=== PATIENT | female | born 1940 | race Two or more races ===

== ENCOUNTER 2019-03-17 11:43 | Inpatient (IN) | payer MEDICARE, OTHER ==
[~2019-03-17] VITALS: Ht 157.5 cm; Wt 53.5 kg
[~2019-03-17 11:43] MED LIST: ANTIVERT/2525 MG PO; ATI1 PO; BAYER ASPIRIN R81 MG PO; BUS5 PO; BUSPIRONE HCL5 MG PO; CORTISPORIN AS; DEBROX15 ML OT; FENOFIBRATE54 M1 PO; ISO10 PO; L40 PO; LIPI10 PO; MECLIZINE25 M3 PO; SIMVASTATIN10 M1 PO; SIMVASTATIN20 M1 PO; SOD1 PO; ZESTRIL20 MG PO
--- NOTE | 2019-03-17 11:45 | NUR ---
IV LINE CASINO CAGE CASHIER HAS INFILTRATED. TOOK OUT IV. WILL START ANOTHER IV
--- NOTE | 2019-03-17 11:51 | NUR ---
PATIENT [facility] AFTER HAVING ALOC. WAS BROUGHT TO BEDSIDE AND WAS AT FIRST ANSWERING QUESTIONS SLOWLY. AFTER A FEW MINUTES, PATIENT WAS ABLE TO COMMUNICATE AND ANSWER QUESTIONS APPROPRIATELY. AAOX4, GCS 15, PERRLA, PATIENT ACTING APPROPRIATELY. BREATHING E/U, BILATERAL CHEST RISE. DR. MARK PERFORMED MSE.
--- NOTE | 2019-03-17 12:21 | NUR ---
XRAY AT BEDSIDE.
--- NOTE | 2019-03-17 12:22 | NUR ---
PT TAKEN TO CT VIA [facility] MATOS.
[2019-03-17 12:24] LABS: BASOPHIL % 0.2 % (0-2); PLATELET COUNT 269 x10^3mcL (130-400)
[2019-03-17 12:39] LABS: CALCIUM 8.5 mg/dL (8.5-10.1); CARBON DIOXIDE 24.9 mmol/L (21-32); CHLORIDE SERUM 100 mmol/L (98-107); CREATININE SERUM 1.2 mg/dL (0.6-1.0); GLUCOSE SERUM 89 mg/dL (74-106); POTASSIUM SERUM 3.7 mmol/L (3.5-5.1); SODIUM SERUM 136 mmol/L (136-145)
[2019-03-17 12:44] LABS: ALBUMIN 3.4 g/dL (3.4-5.0); ALKALINE PHOSPHATASE 67 U/L (46-116); ALT/SGPT 15 U/L (14-59); AST/SGOT 23 U/L (15-37); BILIRUBIN TOTAL 0.49 mg/dL (0.20-1.00); TOTAL PROTEIN, SERUM 6.8 g/dL (6.4-8.2)
--- NOTE | 2019-03-17 12:51 | NUR ---
PT RESTING AT BEDSIDE IN NAD. BREATHING E/U BILATERAL CHEST RISE. WAS ABLE TO URINATE VIA BEDSIDE COMMODE.
[2019-03-17 12:58] LABS: microscopic required? YES; urine erythrocyte NEGATIVE (NEGATIVE)
--- NOTE | 2019-03-17 13:02 | NUR ---
FAMILY AT BEDSIDE
--- NOTE | 2019-03-17 13:36 | NUR ---
PATIENT RESTING AT BEDSIDE IN NAD
[2019-03-17] MEDS ORDERED: ASPIR LOW81 MG PO (15:15)
--- NOTE | 2019-03-17 15:19 | NUR ---
PATIENT RESTING AT BEDSIDE IN NAD. FAMILY AT BEDSIDE.
--- NOTE | 2019-03-17 15:45 | NUR ---
REPORT GIVEN TO GAURI CABRERA
--- NOTE | 2019-03-17 15:59 | NUR ---
RECEIVED PT FROM ED [facility]IA [employer], CAME IN DUE TO SYNCOPE. AAOX4, SLOW SPEECH. DENIES HEADACHE/DIZZINESS. ABLE TO FOLLOW COMMANDS. HAND TOOL GRINDER EQUAL. NO FACIAL DROOP. DENIES CHEST PAIN/PRESSURE, SR ON THE MONITOR. DENIES ABDOMINAL DISCOMFORT. VOIDS. W/ ERYTHEMA ON THE BREAST, ABDOMEN, MID-BACK AND BLE. GENERALIZED WEAKNESS. IV SITE PATENT AND INTACT. SIDE RAILS UPX2. CALL LIGHT ON REACH. ENDORSED TO PRIMARY NURSE MEDINA FOR CONTINUITY OF CARE
[2019-03-17 16:15] VITALS: BP 130/67
[2019-03-17 16:24] VITALS: Ht 157.5 cm; Wt 53.5 kg
--- NOTE | 2019-03-17 16:37 | NUR ---
PHYSICAL THERAPY NOTE UNABLE TO SEE PATIENT SECONDARY DIAGNOSTIC PROCEDURE. WILL ATTEMPT AGAIN NEXT VISIT. NURSING AWARE.
--- NOTE | 2019-03-17 18:26 | NUR ---
PT SITTING UP IN BED EATING DINNER. NO ACUTE DISTRESS. AAOX4. BREATHING EVEN AND UNLABORED ON RA. ECCHYMOSIS WITH ITCHINESS THROUGHOUT BODY, CREAM APPLIED ORDERED. IVF INFUSING, NO REDNESS OR SWELLING. HOB ELEVATED. BED IN LOW POSITION, CALL LIGHT WITHIN REACH. WILL ENDORSE TO ONCOMING SHIFT.
--- NOTE | 2019-03-17 19:25 | NUR ---
RECEIVED PT FROM PREVIOUS SHIFT NURSE. PT AOX4, DENIES PICHARDO/DIZZINESS. ON TELE #2, NSR, HR 69. DENIES CP/PRESSURE. DENIES SOB/DIFFICULTY BREATHING, ON RA. GEN WEAKNESS. AMBULATORY WITH ASSIST. IV TO RAC, INTACT AND PATENT. BED IN LOWEST POSITION. CALL LIGHT WITHIN REACH. WILL CONTINUE TO MONITOR.
[2019-03-17 20:55] VITALS: BP 125/62
--- NOTE | 2019-03-18 02:30 | NUR ---
PT RESTING IN BED. RR EVEN AND UNLABORED. IN NO ACUTE DISTRESS. CALL LIGHT WITHIN REACH. BED IN LOWEST POSITION. WILL CONTINUE TO MONITOR.
[2019-03-18 06:17] VITALS: BP 124/62
[2019-03-18 06:23] LABS: BASOPHIL % 0.4 % (0-2); PLATELET COUNT 268 x10^3mcL (130-400); RED CELL DISTRIBUTION WIDTH 13.9 % (11.5-14.5)
[2019-03-18 06:48] LABS: CALCIUM 8.6 mg/dL (8.5-10.1); CARBON DIOXIDE 22.7 mmol/L (21-32); CHLORIDE SERUM 102 mmol/L (98-107); GLUCOSE SERUM 78 mg/dL (74-106); POTASSIUM SERUM 3.7 mmol/L (3.5-5.1); SODIUM SERUM 134 mmol/L (136-145)
--- NOTE | 2019-03-18 07:27 | NUR ---
RECEIVED PT IN NO ACUTE DISTRESS. SLEEPING BUT EASILY AROUSABLE. RESP EVEN AND UNLABORED ON RA. NO PAIN NOTED. IVF INFUSING, NO REDNESS OR SWELLING TO IV SITE. BED IN LOW POSITION, CALL LIGHT WITHIN REACH. WILL CONTINUE TO MONITOR.
[2019-03-18 08:10] VITALS: BP 128/69
[2019-03-18 11:57] VITALS: BP 150/71
--- NOTE | 2019-03-18 12:40 | NUR ---
PT SITTING UP IN BED EATING LUNCH. NO ACUTE DISTRESS. AAOX4. RESP EVEN AND UNLABORED ON RA. ERYTHEMA THROUGHOUT BODY WITH C/O MILD ITCHING. IVF INFUSING, NO REDNESS OR SWELLING. HOB ELEVATED. CALL LIGHT WITHIN REACH. WILL CONTINUE TO MONITOR.
--- NOTE | 2019-03-18 15:09 | NUR ---
PT C/O DIZZINESS AFTER STANDING UP TO USE BEDSIDE COMMODE. [employer]ENDO NATIONAL FACILITIES MANAGER MADE AWARE, RECEIVED TELEPHONE ORDER FOR MECLIZINE 12.5 MG PO Q8 NEEDED FOR DIZZINESS, ORDERS READ BACK.
[2019-03-18 16:50] VITALS: BP 148/84
--- NOTE | 2019-03-18 18:06 | NUR ---
PT HAD 300 ML EMESIS. GIVEN HOT TEA REQUESTED. PT STATED SHE FELT BETTER AFTER VOMITTING. ALSO GIVEN SALTINE CRACKERS REQUESTED. WILL CONTINUE TO MONITOR.
--- NOTE | 2019-03-18 20:10 | NUR ---
PT CURRENTLY RESTING IN BED, NO ACUTE DISTRESS. A/O X4. TELE #2 SHOWING SINUS RHYTHM, DENIES CHEST PAIN. PULSES PALPABLE IN ALL EXTREMITIES, NO EDEMA NOTED. LUNG SOUNDS CTA BILATERALLY, DENIES SOB. BOWEL SOUNDS ACTIVE, LAST BM 03/18/19. VOIDING WELL. GENERALIZED WEAKNESS, AMBULATORY WITH ASSIST. RASH THROUGHOUT BODY, AD OPERATIONS INTERN, PT EDUCATED TO NOT SCRATCH. IV PATENT AND INTACT. BED IN LOWEST POSITION, SIDE RAILS UP X2, CALL LIGHT WITHIN REACH. WILL CONTINUE TO MONITOR.
[2019-03-18 20:49] VITALS: BP 145/72
--- NOTE | 2019-03-19 01:25 | NUR ---
PT CURRENTLY RESTING IN BED, NO ACUTE DISTRESS. C/O MILD ITCHINESS, APPLIED TOPICAL CREAM. BED IN LOWEST POSITION, SIDE RAILS UP X2, CALL LIGHT WITHIN REACH. WILL CONTINUE TO MONITOR.
--- NOTE | 2019-03-19 05:59 | NUR ---
PT SLEPT PERIODICALLY THROUGHOUT NIGHT, NO ACUTE DISTRESS. ALL NEEDS MET AND ATTENDED TO. NO SIGNIFICANT CHANGES. IV PATENT AND INTACT. BED IN LOWEST POSITION, SIDE RAILS UP X2, CALL LIGHT WITHIN REACH. WILL ENDORSE CARE TO ONCOMING NURSE.
[2019-03-19 06:08] VITALS: BP 150/72
[2019-03-19 06:54] LABS: CALCIUM 8.2 mg/dL (8.5-10.1); CARBON DIOXIDE 21.4 mmol/L (21-32); CHLORIDE SERUM 98 mmol/L (98-107); CREATININE SERUM 0.9 mg/dL (0.6-1.0); GLUCOSE SERUM 82 mg/dL (74-106); POTASSIUM SERUM 3.9 mmol/L (3.5-5.1); SODIUM SERUM 130 mmol/L (136-145)
[2019-03-19 07:02] LABS: BASOPHIL % 0.4 % (0-2); PLATELET COUNT 266 x10^3mcL (130-400)
--- NOTE | 2019-03-19 07:20 | NUR ---
RECEIVED PT IN NO ACUTE DISTRESS. SLEEPING BUT EASILY AROUSABLE. BREATHING EVEN AND UNLABORED ON RA. IVF INFUSING, NO REDNESS OR SWELLING. FALL PRECAUTIONS. BED IN LOW POSITION, CALL LIGHT WITHIN REACH. WILL CONTINUE TO MONITOR.
[2019-03-19 08:08] VITALS: BP 128/71
--- NOTE | 2019-03-19 08:13 | NUR ---
IV TO RAC LEAKING, IV DC'D WITH CATHETER INTACT. NEW IV 22G STARTED ON RIGHT HAND, FLUSHED WITH 10 ML NS. WILL CONTINUE TO MONITOR.
[2019-03-19 11:53] VITALS: BP 131/74
--- NOTE | 2019-03-19 12:08 | NUR ---
PT RESTING IN BED WITH EYES CLOSED. BREATHING EVEN AND UNLABORED ON RA. HOB ELEVATED. FALL PRECAUTIONS IN PLACE. IVF INFUSING, NO REDNESS OR SWELLING NOTED. CALL LIGHT WITHIN REACH. WILL CONTINUE TO MONITOR.
[2019-03-19 16:40] VITALS: BP 127/69
--- NOTE | 2019-03-19 18:49 | NUR ---
PT IN NO ACUTE DISTRESS. RESTING IN BED. AAOX4, C/O MILD DIZZINESS. FALL PRECAUTIONS IN PLACE. BREATHING EVEN AND UNLABORED ON RA. IVF INFUSING, NO REDNESS OR SWELLING NOTED. BED IN LOW POSITION, CALL LIGHT WITHIN REACH. WILL CONTINUE TO MONITOR.
--- NOTE | 2019-03-19 19:29 | NUR ---
PT CURRENTLY RESTING IN BED, NO ACUTE DISTRESS. A/O X4. C/O MILD DIZZINESS. TELE #2 SHOWING SINUS RHYTHM, DENIES CHEST PAIN. PULSES PALPABLE IN ALL EXTREMITIES, NO EDEMA NOTED. LUNG SOUNDS CTA BILATERALLY, DENIES SOB. BOWEL SOUNDS ACTIVE, LAST BM 03/19/19. VOIDING WELL. GENERALIZED WEAKNESS, AMBULATORY WITH ASSIST. RASH THROUGHOUT BODY, PELON. IV PATENT AND INTACT. BED IN LOWEST POSITION, SIDE RAILS UP X2, CALL LIGHT WITHIN REACH. WILL CONTINUE TO MONITOR.
[2019-03-19 21:27] VITALS: BP 148/80
--- NOTE | 2019-03-20 00:18 | NUR ---
PT CURRENTLY SLEEPING IN BED, NO ACUTE DISTRESS. WILL CONTINUE TO MONITOR.
[2019-03-20 06:15] VITALS: BP 150/78
--- NOTE | 2019-03-20 07:15 | NUR ---
RECEIVED BEDSIDE REPORTE, PATIENT SITTING UP ON BSC, ALERT/ORIENTEDX4. ABLE TO MAKE NEEDS KNOWN AND FOLLOW COMMANDS. DENIES HEADACHE, CP OR FEELING SOB. LUNGS CTA, BREATHING E/U. TELE 2 READING SR 63. PERIPHERAL PULSES PALPABLE, NO EDEMA. DENIES N/V. VOIDS FREELY TO BSC, DENIES DISCOMFORT. AMB SLOWLY WITH MINIMAL ASSISTANCE, FALL PREC MAINATAINED. SCATTERED RASH/SCRATCH COCHRAN TO GENERALIZED BODY, APPLYING KENALOG CREAM. COMMUNICATIONS PROFESSIONAL. IV ACCESS TO RT HANDS, NS AT 50ML/HR, NO REDNESS/SWELLING. CALL LIGHT WITHIN REACH AND DEMONSTRATES UNDERSTANDING ON HOW TO USE. PATIENT ASKING IF SHE WILL BE GOING HOME TODAY, INFORMED HER DOCTORS WILL UPDATE HER THIS MORNING, VERBALIED UNDERSTANDING.
[2019-03-20 08:11] VITALS: BP 145/75
[2019-03-20] MEDS ORDERED: LEVAQUIN750 MG PO (09:00)
[2019-03-20 09:48] VITALS: BP 145/75
--- NOTE | 2019-03-20 11:15 | NUR ---
DISCHARGE INSTRUCTIONS AND PRESCRIPTION GIVEN, PATIENT AND DAUGHTER VERBALIZED UNDERSTANDING. IV DC'D CATH INTACT. TELE RETURNED TO TECH STATION. ALL QUESTIONS/CONCERNS ADDRESSED, PATIENT LEAVING UNIT VIA WHEELCHAIR ACCOMPANIED BY MACHINE TRY OUT SETTER.
== END 2019-03-20 11:14 | disposition home or self-care (01) | DRG 690 ==
LOC: ED 11:43 → MU 15:10 → DU 15:10 → MU 15:59 → DU 16:05
PROVIDERS: Student in an Organized Health Care Education/Training Program; ADMIT Internal Medicine
DX: N39.0 Urinary tract infection, site not specified (principal); E86.0 Dehydration; R55 Syncope and collapse; L25.8 Unspecified contact dermatitis due to other agents; E78.00 Pure hypercholesterolemia, unspecified; Z79.82 Long term (current) use of aspirin; Z68.21 Body mass index [BMI] 21.0-21.9, adult
CPT/HCPCS: 97116-GP; G0378; J0696; J3490; J7030; J8597; Q0092

== ENCOUNTER 2019-03-22 10:02 | Inpatient (IN) | payer MEDICARE, OTHER ==
[~2019-03-22] VITALS: Ht 157.5 cm; Wt 54.1 kg
[~2019-03-22 10:02] MED LIST changes: +ASPIR LOW81 MG PO; +LEVAQUIN750 MG PO
[2019-03-22 10:04] VITALS: Ht 157.5 cm; Wt 54.1 kg
--- NOTE | 2019-03-22 10:07 | NUR ---
PATIENT IS BROUGHT IN BY 2 GRANDDAUGHTERS. KAYLEIGH STATES THAT THE PATIENT HAS BEEN REFUSING TO EAT FOR THE PAST FEW DAYS AND THAT THEY PATIENT SEEMS NOT HERSELF. THE PATIENT HAS ALSO HAD TROUBLE WALKING AND NOT BEEN ABLE TO WALK UNLESS SHE IS PROVIDED WITH ASSISTANCE. ALSO STATED THAT THE PATIENT VOMITTED YESTERDAY. NO SIGNS OF FEVER.
[2019-03-22 10:43] LABS: BASOPHIL % 0.3 % (0-2); PLATELET COUNT 302 x10^3mcL (130-400); RED CELL DISTRIBUTION WIDTH 13.4 % (11.5-14.5)
--- NOTE | 2019-03-22 11:00 | NUR ---
STRAIGHT CATH DONE AT THIS TIME. URINALYSIS SENT TO LAB.
[2019-03-22 11:10] LABS: T3 TOTAL 0.73 ng/mL
[2019-03-22 11:11] LABS: FREE T4 0.89 ng/dL (0.76-1.46); T4(THYROXINE) 6.7 ug/dL (4.7-13.3)
[2019-03-22 11:13] LABS: CK-MB 2.8 ng/mL (0-3.6)
[2019-03-22 11:16] LABS: ALBUMIN 3.6 g/dL (3.4-5.0); ALKALINE PHOSPHATASE 70 U/L (46-116); ALT/SGPT 17 U/L (14-59); AST/SGOT 28 U/L (15-37); BILIRUBIN TOTAL 0.4 mg/dL (0.20-1.00); C REACTIVE PROTEIN 0.7 mg/dL (<=0.9); CALCIUM 9.1 mg/dL (8.5-10.1); CARBON DIOXIDE 22.7 mmol/L (21-32); CHLORIDE SERUM 85 mmol/L (98-107); CREATININE SERUM 1.1 mg/dL (0.6-1.0); GLUCOSE SERUM 94 mg/dL (74-106); POTASSIUM SERUM 3.9 mmol/L (3.5-5.1); TOTAL PROTEIN, SERUM 7.1 g/dL (6.4-8.2)
[2019-03-22 11:29] LABS: ERYTHROCYTE SED RATE 19 mm/hr (0-30)
[2019-03-22 11:33] LABS: SODIUM SERUM 121 mmol/L (136-145)
[2019-03-22 12:00] LABS: microscopic required? YES; urine erythrocyte TRACE (NEGATIVE)
--- NOTE | 2019-03-22 12:16 | NUR ---
ASSISTED PATIENT TO BED BRAUN AT THIS TIME. PATIENT VOIDED CLEAR URINE, FAIR AMT. NO PROBLEMS NOTED. PATIENT CLEANSED, AND STABLE. WILL CONTINUE TO MONITOR.
--- NOTE | 2019-03-22 12:57 | NUR ---
REPORT GIVEN TO GAURI ARRIETA. AT THIS TIME. ALL QUESTIONS ANSWERED AT THIS TIME.
[2019-03-22 13:25] VITALS: BP 172/83
--- NOTE | 2019-03-22 13:25 | NUR ---
RECEIVED PT FROM [facility], REPORT GIVEN BY GAURI HERNANDEZ. PT IS AAX4. RESP EVEN AND UNLABORED. LUNG SOUNDS CTA. NO R/A. NO COUGH OR SOB NOTED. TELE [address] READING NSR WITH DEPRESSED ST. PT DENIES C/P OR PRESSURE. SKIN CDI. PERIPHERAL PULSES PALPABLE. NO EDEMA NOTED. IVF NS 125 ML/HR RUNNING TO RAC. SITE WNL. NO S/S OF INFECTION OR INFILTRATION NOTED. GRANDAUGHTERS AT BEDSIDE. CALL LIGHT WITHIN REACH. BED IN LOWEST POSITION. FALL PROTOCOL FOLLOWED.
--- NOTE | 2019-03-22 13:38 | NUR ---
RECEIVED FROM ER, TRANSPORTED VIA [facility]. AWAKE, ALERT. ABLE TO MAKE NEEDS KNOWN. GENERALIZED WEAKNESS. BREATHING EVEN AND UNLABORED ON ROOM, LUNG SOUNDS CLEAR. PLACED ON TELE 1, SINUS RHYTHM. SALINE LOCK TO RIGHT AC. ADMISSION HISTORY AND ASSESSMENT DONE. ENDORSED TO NURSE MILLER.
--- NOTE | 2019-03-22 13:50 | NUR ---
TIARRA BRYSON NP MET WITH PT. PT IS DEHYDRATED AND WILL NEED TO CONTINUE IV FLUIDS. PT EXPECTED STAY ONE TO TWO MIDNIGHTS. PT AGREED WITH POC.
--- NOTE | 2019-03-22 15:00 | NUR ---
ASSISTED PT ON TO BED BRAUN AND BACK OFF. PT IS HAVING FREQUENT URINATION BUT DENIES PAIN UPON URINATION. RESP EVEN AND UNLABORED. NO DISTRESS NOTED. CALL LIGHT WITHIN
[2019-03-22 16:24] VITALS: BP 152/79
--- NOTE | 2019-03-22 18:46 | NUR ---
PT IS AAOX4. RESP EVEN AND UNLABORED. NO DISTRESS NOTED. TELE [address] READING NSR WITH DEPRESSED T. IVF RUNNING TO [facility], SITE WNL. PT DENIES PAIN AND DISCOMFORT. CALL LIGHT WITHIN REACH. WILL ENDORSE ALL CARE TO NOC RN.
--- NOTE | 2019-03-22 19:50 | NUR ---
PT RECIEVED AAO REG RESP NO SOB V/S STABLE,HOB,PT ON TELE MONITOR AND IN NSR NO ECTOPY OR CHEST PAIN THIS TIME,IV INFUSING WELL WITH THE SITE PATENT AND INTACT,MADE COMFORTABLE IN BED,PT WITH GENERALISED WEAKNESS,KEPT CLEAN AND DRY TO TOUCH,CALL LIGHT EASY REACHED AND WILL CONTINUE TO MONITOR.
[2019-03-22 20:15] VITALS: BP 151/69
[2019-03-23 05:49] VITALS: BP 157/72
--- NOTE | 2019-03-23 06:37 | NUR ---
PT HAD A RESTING NIGHT KEPT CLEAN AND DRY TO TOUCH AND NO CHANGE AT THIS TIME,WILL CONTINUE TO MONITOR.
--- NOTE | 2019-03-23 07:30 | NUR ---
PT ENDORSE TO ME THIS MORNING LAYING IN BED RESTING. AA/OX4. BREATHING EVEN AND UNLABORED ON RA, NO ACUTE RESP DISTRESS OR SOB NOTED. TELE 2 NSR WITH DREPRESSED T-WAVE NOTED/ DENIES ANY CP OR PRESSURE. VOIDS FREELY/ BEDPAN. GEN WEAKNESS/IS ABLE TO REPPOSITION SELF IN BED. BLE SCRATCH/PELON. IV TO THE RAC INTACT AND PATENT, INFUSING AT 125ML/HR, NO REDNESS OR SWELLING NOTED. WILL CONTINUE TO MONITOR/ X2 SIDE RAILS UP.
[2019-03-23 08:13] VITALS: BP 153/77
--- NOTE | 2019-03-23 08:40 | NUR ---
PT C/O N/V AND PICHARDO 03/18, MEDICATED PER EMAR. FAMILY AT BEDSIDE. WILL CONTINUE TO MONITOR.
[2019-03-23 10:01] LABS: CALCIUM 7.8 mg/dL (8.5-10.1); CARBON DIOXIDE 21.2 mmol/L (21-32); CHLORIDE SERUM 91 mmol/L (98-107); CREATININE SERUM 0.9 mg/dL (0.6-1.0); GLUCOSE SERUM 83 mg/dL (74-106); POTASSIUM SERUM 3.6 mmol/L (3.5-5.1)
[2019-03-23 10:17] LABS: SODIUM SERUM 122 mmol/L (136-145)
--- NOTE | 2019-03-23 10:20 | NUR ---
LAB CALLED NA 122 PASQUALE MAYEN MADE AWARE.
[2019-03-23 12:06] VITALS: BP 144/66
--- NOTE | 2019-03-23 14:25 | NUR ---
PT TOLERATED 50% OF LUNCH. DENIES ANY N/V AT THIS TIME.
[2019-03-23 15:57] VITALS: BP 119/60
--- NOTE | 2019-03-23 17:30 | NUR ---
PT TOLERATED 60% OF DINNER. DENIES ANY N/V OR DISCOMFORT.
--- NOTE | 2019-03-23 18:41 | NUR ---
NO ACUTE CHANGES AT THIS TIME. NO ACUTE RESP DISTRESS OR SOB NOTED. DENIES ANY N/V AT THIS TIME. IV TO THE RAC INFUSING AT 150ML/HR, NO REDNESS OR SWELLING NOTED. WILL ENDORSE TO INCOMING RN.
--- NOTE | 2019-03-23 19:25 | NUR ---
CARE ASSUMED FROM OUTGOING RN. PT RESTING COMFORTABLY IN BED. FAMILY AT BEDSIDE. NO ACUTE DISTRESS NOTED. EVEN AND UNLABORED RESPIRATIONS ON RA. ON TELE# 2 READING SB 58. IV PATENT AND INTACT RUNNING FLUIDS PER EMAR. DINNER AT BEDSIDE, NOTED POOR APPETITE AT THE MOMENT. DENIES ANY PAIN AT THIS TIME. BED IN LOWEST POSITION. SIDE RAILS UPX2. CALL LIGHT WITHIN REACH. WILL CONTINUE TO MONITOR.
[2019-03-23 20:50] VITALS: BP 134/60
--- NOTE | 2019-03-24 00:19 | NUR ---
PT ASLEEP COMFORTABLY IN BED. NO ACUTE DISTRESS NOTED. CHEST RISE AND FALL OBSERVED. ON TELE# 1 READING SB 58. IV PATENT AND INTACT WITH FLUIDS RUNNING PER EMAR. BED IN LOWEST POSITION. SIDE RAILS UPX2. CALL LIGHT WITHIN REACH. WILL CONTINUE TO MONITOR.
[2019-03-24 05:36] VITALS: BP 128/63
[2019-03-24 06:13] LABS: BASOPHIL % 0.3 % (0-2); PLATELET COUNT 249 x10^3mcL (130-400); RED CELL DISTRIBUTION WIDTH 13.8 % (11.5-14.5)
[2019-03-24 06:20] LABS: CALCIUM 7.4 mg/dL (8.5-10.1); CARBON DIOXIDE 22.4 mmol/L (21-32); CHLORIDE SERUM 96 mmol/L (98-107); CREATININE SERUM 0.9 mg/dL (0.6-1.0); GLUCOSE SERUM 80 mg/dL (74-106); MAGNESIUM 1.9 mg/dL (1.8-2.4); POTASSIUM SERUM 3.7 mmol/L (3.5-5.1); SODIUM SERUM 127 mmol/L (136-145)
--- NOTE | 2019-03-24 06:49 | NUR ---
PT SLEPT COMFORTABLY IN INTERVALS THROUGHOUT THE SHIFTS. NO ACUTE CHANGES NOTED. NO C/O OF PAIN. ON TELE# 1 READING SR 64. IV PATENT AND INTACT RUNNING FLUIDS PER EMAR. ALL NEEDS TENDED TO AND MET. ALL SCHEDULED MEDICATIONS GIVEN. BED IN LOWEST POSITION. SIDE RAILS UPX2. CALL LIGHT WITHIN REACH. WILL ENDORSE TO ONCOMING SHIFT.
--- NOTE | 2019-03-24 07:40 | NUR ---
PATIENT RESTING IN BED, NO ACUTE DISTRESS NOTED. PATIENT IS A/OX4. DENIES HEADACHE/ DIZZINESS. DENIES N/V . PATIENT DENIES SOB, ON ROOM AIR. PATIENT IS INCONTINENT AT TIMES. GENERALIZED WEAKNESS NOTED, ABLE TO ASSIST WITH TURNING. NS IV INFUSING TO RAC AT 150ML/HR, IV SITE CDI & PATENT, NO S/S OF INFILTRATION. CALL LIGHT WITHIN REACH, BED IN LOW POSITION. WILL CONTINUE TO MONITOR.
[2019-03-24 09:25] VITALS: BP 145/62
--- NOTE | 2019-03-24 10:43 | NUR ---
PASQUALE MUSA BLOOD CULTURE CAME BACK NEGATIVE, NO GROWTH AFTER 48 HRS.
--- NOTE | 2019-03-24 11:15 | NUR ---
PHYSICAL THERAPY AT BEDSIDE.
--- NOTE | 2019-03-24 12:52 | NUR ---
Initial Nutrition Assessment: 218T/B LONNY [place] IA HR Dx: Severe hyponatremia, generalized weakness PMHx: HIGH CHOLESTEROL, UTI PSHx: No Surgical History Labs: NA 127L, CA 7.4L, HGB 10.8L Meds: Ambien, Colace, morphine, norco, zofran Diet: Regular PO Intake: (03/24) breakfast 80%, (03/23) breakfast 0% Ht: 157.48 cm (62") Wt: 54 kg (119#) BMI: 21.8 kg/m2 Bed scale: 59.6 kg IBW: 110# (50 kg) %IBW: 108 UBW: 55-60 kg Age: 79/F Food Allergies: NKFA Skin: scratches to BLE Jose G: 17 Edema: none GI: Last BM: 03/23 Trigger: appears underweight/malnourished, unintentional weight loss, poor PO >3d Per H&P, Pt is a 79-year-old patient brought in by family for generalized weakness. Patient was just discharged from the hospital 2 days ago. She was in the hospital for 4 days and discharged with diagnosis of near syncope generalized weakness and a UTI. RDN Visit (03/24): Patient was alert and oriented and said that she ate most of her breakfast this morning. Per progress note, (03/24) Patient states she feels better today. Sodium level today is 127. Physical therapy pending Problem with: N/V/D/C: no Problems with: Chewing/Swallowing: none Current appetite: fair Recent wt change: none %wt change: N/A Vitamin/Supplement use: MVI Special diet at home: regular Physical activity: walking, stretching Nutrition education given: PO was encouraged. Pt is still hyponatremia. Pt. is willing to consume ONS Ensure. Food-drug interactions: Colace- high fiber w/8450-7019 ml fluids Education given: no Estimated Nutritional Needs Based on actual body weight 59 kg Energy: 4516-2569 kcal/d (30-35 kcal/kg) Protein: 59-71 g/d (1.0-1.2 g/kg) - geriatric maintenance Fluid: 6975-4865 ml/d (1 ml/kcal) or per doctor Nutrition Diagnosis 1. Increased nutrient needs related to geriatric age as evidenced by estimated calorie and protein needs. Intervention 1. Recommend continuing regular diet w/ Ensure Enlive BID. Discussed recommendations with PASQUALE Estevez. Monitor/Evaluate Goal: PO intake at least 75% of estimated needs Monitor: PO intake, Labs, GI function F/U in 7 days as low risk 03/31
--- NOTE | 2019-03-24 12:52 | NUR ---
1. Recommend continuing regular diet w/ Ensure Enlive BID. Discussed recommendations with PASQUALE Estevez.
[2019-03-24 12:55] VITALS: BP 150/65
--- NOTE | 2019-03-24 13:20 | NUR ---
PATIENT SITING UP IN BED EATING, PATIENT TOLERATING MEAL. PATIENT DENIES PAIN. TELE MONITOR IN PLACE. CALL LIGHT WITHIN REACH, BED IN LOW POSITION, WILL CONTINUE TO MONITOR.
[2019-03-24 16:49] VITALS: BP 141/58
[2019-03-24 16:52] VITALS: BP 145/68
--- NOTE | 2019-03-24 19:00 | NUR ---
PATIENT RESTING IN BED, NO ACUTE CHANGES NOTED THROUGH OUT SHIFT, PATIENT IS STABLE. DENIES PAIN. TELE MONITOR IN PLACE. DENIES SOB, ON ROOM AIR. NS IV INFUSING TO RIGHT FA AT 150ML/HR, NO S/S OF INFILTRATION. CALL LIGHT WITHIN REACH, BED IN LOW POSITION, WILL ENDORSE REPORT TO NIGHT RN.
--- NOTE | 2019-03-24 19:35 | NUR ---
RECEIVED REPORT FROM DAY SHIFT RN. PT RESTING IN BED. AA&O X4. NO SOB ON ROOM AIR. BREATHING EVEN AND UNLABORED. NO C/O PAIN. NO DISTRESS NOTED. IV TO RAC, NS INFUSING. SAFETY MEASURES IN PLACE. BED IN LOWEST POSITION. SIDE RAILS UP X2. DEMONSTRATED HOW TO USE THE CALL LIGHT FOR ASSISTANCE. CALL LIGHT WITHIN EASY REACH.
[2019-03-24 20:55] VITALS: BP 155/70
--- NOTE | 2019-03-25 00:46 | NUR ---
AMBIEN GIVEN FOR INSOMNIA.
--- NOTE | 2019-03-25 02:15 | NUR ---
PT RESTING WITH EYES CLOSED. NO SOB ON ROOM AIR. NO FACIAL GRIMACING NOTED. SAFETY MEASURES IN PLACE. CALL LIGHT WITHIN REACH. WILL CONTINUE TO MONITOR.
--- NOTE | 2019-03-25 04:56 | NUR ---
PT SLEPT AT LONG INTERVALS THROUGHOUT SHIFT. NO SOB ON ROOM AIR. NO DISTRESS NOTED. IV TO LAC, NS INFUSING PER ORDER. SAFETY MEASURES MAINTAINED. ALL NEEDS ATTENDED TO. CALL LIGHT WITHIN REACH. WILL CONTINUE TO MONITOR AND ENDORSE CONTINUITY OF CARE TO DAY SHIFT RN.
[2019-03-25 05:12] VITALS: BP 139/65
[2019-03-25 06:55] LABS: BASOPHIL % 0.3 % (0-2); PLATELET COUNT 271 x10^3mcL (130-400); RED CELL DISTRIBUTION WIDTH 14.2 % (11.5-14.5)
[2019-03-25 07:31] LABS: CALCIUM 8.2 mg/dL (8.5-10.1); CARBON DIOXIDE 22.1 mmol/L (21-32); CHLORIDE SERUM 100 mmol/L (98-107); CREATININE SERUM 0.8 mg/dL (0.6-1.0); GLUCOSE SERUM 80 mg/dL (74-106); POTASSIUM SERUM 3.8 mmol/L (3.5-5.1); SODIUM SERUM 131 mmol/L (136-145)
--- NOTE | 2019-03-25 07:45 | NUR ---
RECEIVED PATIENT SLEEPING IN BED, AROUSABLE. PATIENT IS A/OX3, DENIES HEADACHE, TELE MONITOR IN PLACE, NSR. PATIENT DENIES PAIN. LUNG SOUNDS CTA, PATIENT ON ROOM AIR. PATIENT OCCASIONALLY INCONTINENT, PATIENT AWARE TO NOTIFY NURSE IF SOILED. GENERALIZED WEAKNESS NOTED, ABLE TO ASIST WITH TURNING AND REPOSITIONING SELF. NS IV INFUSING TO RAC AT 150ML/HR, IV SITE CDI & PATENT, NO S/S OF INFILTRATION. CALL LIGHT WITHIN REACH, BED IN LOW POSITION, WILL CONTINUE TO MONITOR FOR CHAGES.
[2019-03-25 09:15] VITALS: BP 154/69
--- NOTE | 2019-03-25 11:50 | NUR ---
PATIENT SITTING UP, CONVERSING WITH FAMILY. PATIENT DENIES PAIN.UPDATED FAMILY ON PATIENTS PLAN OF CARE. ALL QUESTIONS AND CONCERNS ADDRESSED. CALL LIGHT WITHIN REACH, BED IN LOW POSITION, WILL CONTINUE TO MONITOR.
[2019-03-25 12:23] VITALS: BP 134/69
--- NOTE | 2019-03-25 14:50 | NUR ---
PATIENT SLEEPING IN BED, NO ACUTE DISTRESS NOTED. CALL LIGHT WITHIN REACH, BED IN LOW POSITION, WILL CONTINUE TO MONITOR.
--- NOTE | 2019-03-25 15:23 | NUR ---
PHYSICAL THERAPY DAILY NOTES CO-SIGN All documentation done by the [employer] Program Coordinator for 03/25/19 has been reviewed. I agree with the documentation. Reviewed/Co-Signed by: Saima Rojas PT Documentation Done by:LISA KOVACS TAR LEVELER POC REVIEWED W/ TAR LEVELER
[2019-03-25 17:28] VITALS: BP 129/58
--- NOTE | 2019-03-25 17:30 | NUR ---
PATIENT HAD TEMP OF 100.3, COOLING MEASURES STARTED. ICE PACKS APPLIED, AC TURNED ON, HEAVY BLANKETS REMOVED. PATIENT UNDERSTANDS TO REPORT ANY CHILLS. PATIENT AGREES WITH POC, WILL CONTINUE TO MONITOR PATIENT. CALL LIGHT WITHIN REACH.
--- NOTE | 2019-03-25 18:40 | NUR ---
PATIENT RESTING IN BED, DENIES PAIN. NO ACUTE DISTRESS NOTED. TELE MONITOR IN PLACE. DENIES NAUSEA/VOMITTING. NS IV INFUSING TO RAC AT 150ML/HR, IV SITE CDI & PATENT, NO S/S OF INFILTRATION. ALL QUESTIONS & CONCERNS ADDRESSED. CALL LIGHT WITHIN REACH, BED IN LOW POSITION, WILL ENDORSE REPORT TO NIGHT NURSE.
--- NOTE | 2019-03-25 19:53 | NUR ---
PT RESTING IN BED. AA&O X4. NO SOB NOTED. BREATHING EVEN AND UNLABORED. NO C/O PAIN AT THIS TIME. NO DISTRESS NOTED. IV TO RAC, NS INFUSING. SAFETY MEASURES IN PLACE. BED IN LOWEST POSITION. SIDE RAILS UP X2. INSTRUCTED PT TO CALL FOR ASSISTANCE. CALL LIGHT WITHIN REACH.
[2019-03-25 21:48] VITALS: BP 131/67
[2019-03-26 05:34] VITALS: BP 133/64
--- NOTE | 2019-03-26 06:12 | NUR ---
PT RESTED IN LONG INTERVALS THROUGHOUT SHIFT. NO SOB NOTED. NO C/O PAIN. NO ACUTE CHANGES. SAFETY MEASURES MAINTAINED. ALL NEEDS ATTENDED TO. BED IN LOWEST POSITION. SIDE RAILS UP X2. CALL LIGHT WITHIN REACH. WILL ENDORSE CONTINUITY OF CARE TO ONCOMING RN.
[2019-03-26 06:42] LABS: CALCIUM 7.4 mg/dL (8.5-10.1); CARBON DIOXIDE 24.8 mmol/L (21-32); CHLORIDE SERUM 97 mmol/L (98-107); CREATININE SERUM 0.7 mg/dL (0.6-1.0); GLUCOSE SERUM 83 mg/dL (74-106); POTASSIUM SERUM 4.2 mmol/L (3.5-5.1); SODIUM SERUM 129 mmol/L (136-145)
[2019-03-26 07:06] LABS: BASOPHIL % 0.4 % (0-2); PLATELET COUNT 264 x10^3mcL (130-400); RED CELL DISTRIBUTION WIDTH 14.3 % (11.5-14.5)
--- NOTE | 2019-03-26 08:00 | NUR ---
RECEIVED ALDA FERGUSON ND ORIENTE DTIMES FOUR. PATIENT IS SITTING UP AND EATING AT THIS TIME. CONTINUED ON IV FLUIDS AND TELE ORDERED. PATIENT HAS BEEN NOTED WITH H AND H OF 10.3/31, CHLORIDE AT 97, AND THE CA AT 7.4. PATIENT HAS BEEN ON NORMAL SALINE AT 150 PER HOUR. PATIENT HAS NOTED TO HAVE CHEST XRAY THAT IS NEGATIVE ADN THE URINE IS WTIH A FEW BACTERIA BUT DENIES ANY BURNING WITH URINATION. PATIENT WTIH HISTORY OF HIGH CHOLESTEROL, UTI, SYNCOPE ADN POOR APPETITE. SHE HAS BEEN TALKATIVE AND ON THE CELL PHONE OFTEN. PATIEN THAS SOME SCRATCHES TO THE LEGS AND SCDS IN PLACE. SHE HAS OTHERWISE INTACT SKIN AND SHE HAS ACTIVE BOWEL SOUNDS AND CLEAR BREATH SOUNDS ARE NOTED. VITALS ATTHIS TIME AT 98.7, 61, 18, 133/64, 99%. NO COMPLAINTS OF PAIN AT THIS TIME.
[2019-03-26 08:56] VITALS: BP 151/72
--- NOTE | 2019-03-26 10:56 | NUR ---
REMOVED THE TELE PER ORDER. NO DISTRESS NOTED AT THIS TIME. SEEN BY THE JAVA ORACLE DEVELOPER AND NO PLAN FOR DISCHARGE YET TODAY.
[2019-03-26 12:33] VITALS: BP 159/74
--- NOTE | 2019-03-26 14:00 | NUR ---
CALLED THE GIS SCIENTIST THE PATIENT HAS ELVATED BP. SHE WANTS THE IV FLUIDS CONTINUE AND TO MONITOT THE PATIENT AND IF THE BP IS ABOVE 170 SYSTOLIC TO CALL HER AND SHE MAY ORDER HYDROLOZINE AT THAT TIME. PATIENT IS WITH VISITOR AT BEDSIDE AND DENIES PAIN OR DISTRESS AT THIS TIME. =
[2019-03-26 17:31] VITALS: BP 163/72
--- NOTE | 2019-03-26 19:40 | NUR ---
RECEIVED REPORT FROM DAY SHIFT RN. PT SITTING UP IN BED. AA&O X4. NO SOB NOTED ON ROOM AIR. NO C/O PAIN. NO DISTRESS NOTED. IV TO RAC, NS INFUSING. SAFETY MEASURES IN PLACE. BED IN LOWEST POSITION. SIDE RAILS UP X2. INSTRUCTED PT TO CALL FOR ASSISTANCE. CALL LIGHT WITHIN REACH.
[2019-03-26 19:49] VITALS: BP 142/51
[2019-03-26 20:54] VITALS: BP 132/75
[2019-03-27 05:24] VITALS: BP 157/72
--- NOTE | 2019-03-27 06:17 | NUR ---
PT RESTED IN LONG INTERVALS DURING SHIFT. NO C/O SOB ON ROOM AIR. NO C/O PAIN. NO ACUTE CHANGES TO REPORT. SAFETY MEASURES MAINTAINED. ALL NEEDS ATTENDED TO. CLEANED AND MADE PT COMFORTABLE. CALL LIGHT WITHIN REACH. WILL ENDORSE CARE TO DAY SHIFT RN.
[2019-03-27 06:18] LABS: BASOPHIL % 0.7 % (0-2); PLATELET COUNT 277 x10^3mcL (130-400); RED CELL DISTRIBUTION WIDTH 13.8 % (11.5-14.5)
[2019-03-27 06:32] LABS: CALCIUM 7.8 mg/dL (8.5-10.1); CARBON DIOXIDE 24.4 mmol/L (21-32); CHLORIDE SERUM 94 mmol/L (98-107); CREATININE SERUM 0.7 mg/dL (0.6-1.0); GLUCOSE SERUM 79 mg/dL (74-106); POTASSIUM SERUM 4.1 mmol/L (3.5-5.1); SODIUM SERUM 127 mmol/L (136-145)
--- NOTE | 2019-03-27 07:20 | NUR ---
RECEIVED PATIENT AWAKE/ALERT, DENIES ANY PAIN. NO DISTRESS NOTED, M/S PATIENT. IV TO RAC INTACT AND INFUSING WELL. NAILHEAD SETTER AT BEDSIDE PROVIDE GERRY CARE FOR INCONT OF STOOL. CALL LIGHT WITHIN CALL LIGHT.
[2019-03-27 09:02] VITALS: BP 149/68
--- NOTE | 2019-03-27 09:43 | NUR ---
PATIENT UP WITH PT USING WALKER WALKING IN HALLWAY WITH GRAND-DTR ACCOMPANIED. NO COMPLAIN.
[2019-03-27] MEDS ORDERED: PRI20 PO (12:38)
--- NOTE | 2019-03-27 12:38 | NUR ---
PATIENT SAT UP IN BED EATING HER LUNCH, NO COMPLAINS. NEEDS MET, CALL LIGHT WITHIN REACH.
[2019-03-27] MEDS ORDERED: SOD1 PO (12:48)
--- NOTE | 2019-03-27 15:05 | NUR ---
PATIENT SLEEPING AT THIS TIME. NO DISTRESS NOTED. CALL LIGHT WITHIN REACH.
[2019-03-27 17:29] VITALS: BP 133/61
--- NOTE | 2019-03-27 18:00 | NUR ---
PATIENT SAT UP IN BED NO C/O PAIN, NO DISTRESS NOTED, EATING HER DINNER STATED TOO MUCH FOODS. INSTRUCT PATIENT TO EAT MUCH TOLERATED. NEEDS MET. CONT TO MONITOR.
--- NOTE | 2019-03-27 19:40 | NUR ---
RECEIVED PT LAYING IN BED, NO ACUTE DISTRESS OBSERVED, DENIES PAIN OR DISCOMFORT. AA/OX4, ABLE TO MAKE NEEDS KNOWN, SPEECH SLOW AND APPROPRIATE. MD-SURG, NO TELE, NO CP. PULSES PRESENT AND EQUAL THROUGHOUT, NO EDEMA NOTED. BREATHING ON RA, EVEN AND UNLABORED, NO SOB OR DYSPNEA OBSERVED. ABD ROUND AND SOFT WITH ACTIVE BOWEL SOUNDS, DENIES N/V/D. FREELY VOIDS URINE WITH PERIODS OF INCONTINENCE. GENERALIZED WEAKNESS, AMBULATORY WITH ASSIST, ABLE TO TURN AND REPOSITION SELF IN BED. PENDING SNF PLACEMENT FOR CONTINUED PHYSICAL THERAPY. UP WITH P.T. USES FWW. IV TO RAC IN PLACE, DRY, PATENT, INTACT, AND INFUSING IVF WELL, NO PAIN, REDNESS OR SWELLING NOTED. COMFORT AND SAFETY MEASURES IN PLACE. FALL PRECAUTIONS IN PLACE. ALL NEEDS ASSESSED AND ATTENDED TO. CALL LIGHT WITHIIN REACH. WILL CONTINUE TO MONITOR
[2019-03-27 20:45] VITALS: BP 157/76
[2019-03-28 05:31] VITALS: BP 157/75
--- NOTE | 2019-03-28 06:23 | NUR ---
NO SIGNIFICANT CHANGES TO REPORT, PT COMPLIED WITH NURSING CARE THROUGHOUT THE SHIFT WITH NO ACUTE EVENTS OVERNIGHT. NO ACUTE DISTRESS OBSERVED AT THIS TIME, PT LAYING IN BED, BREATHING EVEN AND UNLABORED. COMFORT AND SAFETY MEASURES MAINTAINED. ALL NEEDS ASSESSED AND ATTEDNED TO. CALL LIGHT WITHIN REACH. WILL CONTINUE TO MONITOR AND ENDORSE CARE TO DAY SHIFT NURSE
--- NOTE | 2019-03-28 08:57 | NUR ---
PATIENT STILL TRY TO EAT HER BREAKFAST, ZOFRAN 4MG IVP ADMINISTERED FOR NAUSEA AND UPSET STOMACH, ALL PO MEDS ADMINISTERED W/O PROBLEM. NEEDS MET. CONT TO MONITOR.
--- NOTE | 2019-03-28 09:39 | NUR ---
SCREEN FOR LOW ARISTIDES SCALE AT RISK PRESSURE ULCER INJURY PREVENTION INTERVENTIONS: -TURN AND REPOSITION PATIENT Q 2H OFFLOAD LEFT AND RIGHT HIPS -ASSESS AND MONITOR SKIN CONDITION DURING POSITION CHANGE -OFFLOAD BILATERAL HEELS BY PLACING PILLOWS UNDER CALVES AT ALL TIMES, UNLESS OTHERWISE CONTRAINDICATED -KEEP SKIN CLEAN AND DRY AT ALL TIMES.
[2019-03-28 10:00] VITALS: BP 155/74
--- NOTE | 2019-03-28 10:15 | NUR ---
PATIENT RESTING IN BED EYES CLOSED, AWAKEN EASILY, ASSESS FOR NAUSEA PT REPORT A LITTLE BETTER. CONT TO MONITOR.
--- NOTE | 2019-03-28 12:52 | NUR ---
PATIENT SAT UP IN BED FOR LUNCH REPORT DON'T LIKE THE FOODS ON HER TRAY, CALL KITCHEN FOR ALTERNATIVE PT REQUEST FOR FISH; PER NUTRITION SERVICE NO FISH TODAY ASKING FOR TUNA SANDWICH. CALL LIGHT WITHIN REACH.
[2019-03-28 13:21] LABS: BASOPHIL % 0.5 % (0-2); PLATELET COUNT 322 x10^3mcL (130-400); RED CELL DISTRIBUTION WIDTH 13.7 % (11.5-14.5)
[2019-03-28 13:43] LABS: CHLORIDE SERUM 85 mmol/L (98-107); CREATININE SERUM 0.8 mg/dL (0.6-1.0); GLUCOSE SERUM 91 mg/dL (74-106); POTASSIUM SERUM 4.1 mmol/L (3.5-5.1)
[2019-03-28 14:00] LABS: SODIUM SERUM 119 mmol/L (136-145)
--- NOTE | 2019-03-28 14:06 | NUR ---
RECEIVED A CALL FROM LEON(STAFF FROM LAB) WITH A CRITICAL LAB RESULT [id number]. CALLED AND REPORTED RESULT TO ALICIA(N.P.) AND MADE HER AWARE OF RESULT AND ALSO MADE HER AWARE TOO THAT PT HAD BEEN NOTED BY STAFF TO BE CONSUMING A LOT OF WATER. NEW ORDER RECEIVED OV IV 3%NACL AT 20ML/HR OF 500ML X1 BAG. FLUID RESTRICTION TO 1500ML/DAY. CHUCHO ASTORGA ASSIGNED TO THIS PT MADE AWARE OF ABOVE.
--- NOTE | 2019-03-28 14:53 | NUR ---
PATIENT RESTING IN BED AWAKE/ALERT AT THIS TIME, REPORT FEEL SLEEPY. INSTRUCT PATIENT OF LIMITED WATER TO 1500ML/DAY; 3% NS STARTED AT 20ML/HR ORDERED, NA LEVEL 118. CONT TO MONITOR. IV TO RAC INTACT AND PATENT, NO LEAKING OR SWELLING NOTED.
[2019-03-28 16:58] VITALS: BP 159/81
--- NOTE | 2019-03-28 18:23 | NUR ---
PATIENT SAT UP EATING HER DINNER C/O NOT HAVING APPETITE, ENC PATIENT EATTING MUCH SHE TOLERATED. PATIENT REPORT SHE DRINK ENSURE. NEEDS MET. CALL LIGHT WITHIN REACH.
[2019-03-28 18:27] LABS: CARBON DIOXIDE 25.4 mmol/L (21-32); CHLORIDE SERUM 84 mmol/L (98-107); CREATININE SERUM 0.7 mg/dL (0.6-1.0); GLUCOSE SERUM 91 mg/dL (74-106); POTASSIUM SERUM 4.3 mmol/L (3.5-5.1)
[2019-03-28 18:38] LABS: SODIUM SERUM 119 mmol/L (136-145)
--- NOTE | 2019-03-28 19:00 | NUR ---
RECEIVED PT LAYING IN BED, NO ACUTE DISTRESS OBSERVED, DENIES PAIN OR DISCOMFORT. AA/OX4, ABLE TO MAKE NEEDS KNOWN, SPEECH SLOW AND APPROPRIATE. MED-SURG, NO TELE, NO CP. PULSES PRESENT AND EQUAL THROUGHOUT, NO EDEMA NOTED. BREATHING ON RA, EVEN AND UNLABORED, NO SOB OR DYSPNEA OBSERVED. ABD ROUND AND SOFT WITH ACTIVE BOWEL SOUNDS, DENIES N/V/D. FREELY VOIDS URINE WITH PERIODS OF INCONTINENCE. GENERALIZED WEAKNESS, AMBULATORY WITH ASSIST, ABLE TO TURN AND REPOSITION SELF IN BED. UP WITH P.T. USES FWW. IV TO RAC IN PLACE, DRY, PATENT, INTACT, AND INFUSING IVF WELL, NO PAIN, REDNESS OR SWELLING NOTED. COMFORT AND SAFETY MEASURES IN PLACE. FALL PRECAUTIONS IN PLACE. ALL NEEDS ASSESSED AND ATTENDED TO. CALL LIGHT WITHIIN REACH. WILL CONTINUE TO MONITOR
--- NOTE | 2019-03-28 20:04 | NUR ---
RECEIVED ORDER TO TRANSFER PT TO TELE. TELE #19 PLACED, NSR WITH HR 63.
[2019-03-28 21:01] VITALS: BP 154/80
[2019-03-28 22:36] LABS: CALCIUM 7.8 mg/dL (8.5-10.1); CARBON DIOXIDE 25.4 mmol/L (21-32); CHLORIDE SERUM 84 mmol/L (98-107); CREATININE SERUM 0.8 mg/dL (0.6-1.0); GLUCOSE SERUM 96 mg/dL (74-106); POTASSIUM SERUM 4.3 mmol/L (3.5-5.1)
[2019-03-28 22:59] LABS: SODIUM SERUM 118 mmol/L (136-145)
--- NOTE | 2019-03-28 23:16 | NUR ---
RECEIVED CRITICAL REPORT FOR PT'S NA 118. DR. QUINTANA PAGED AT THIS TIME TO RELAY RESULTS. WILL ANTICIPATE CALL BACK
--- NOTE | 2019-03-29 00:01 | NUR ---
DR. QUINTANA MADE AWARE OF PT'S NA 118. NEW ORDERS RECEIVED FOR SERUM OSMO, URINE NA, URINE OSMO, ONE TIME ORDER OF NACL TAB, AND 1,000 ML FLUID RESTRICTION. HAT PLACED IN TOILET. PT MADE AWARE FOR NEED TO COLLECT URINE SAMPLE AT THIS TIME.
[2019-03-29 05:40] VITALS: BP 142/76
[2019-03-29 06:25] LABS: BASOPHIL % 0.8 % (0-2); PLATELET COUNT 336 x10^3mcL (130-400); RED CELL DISTRIBUTION WIDTH 13.6 % (11.5-14.5)
[2019-03-29 06:50] LABS: CARBON DIOXIDE 23.2 mmol/L (21-32); CHLORIDE SERUM 87 mmol/L (98-107); CREATININE SERUM 0.8 mg/dL (0.6-1.0); POTASSIUM SERUM 4.3 mmol/L (3.5-5.1)
--- NOTE | 2019-03-29 07:04 | NUR ---
PHYSICAL THERAPY DAILY NOTES CO-SIGN All documentation done by the Centrifugal Screen Tender for 03/28/19 has been reviewed. I agree with the documentation. Reviewed/Co-Signed by: Kay Sykes PT Documentation Done by: LISA KOVACS PTA
[2019-03-29 07:05] LABS: GLUCOSE SERUM 82 mg/dL (74-106)
--- NOTE | 2019-03-29 08:00 | NUR ---
PATIENT RECEIVED AWAKE AND DENIES PAIN AT THIE TIME SHE IS EATTING HER BREAKFAST AND HAS BEEN TOLERATING WELL. NOTE DTHA TPITEN THSA LOW SODIUM ON THE LAST BLOOD DRAW AND HAS IMPROVED WITH THIS BY ONLY ONE POINT. PATIENT HAS BEEN OOB WITH ASSIST AND IS FOR POSSIBLE DISCHARGE TO A SNF FOR CONTINUED REHAB AND STRENGTHING. RUSTAM DUPREE DIMINISHED BREATH SOUNDS AND BOWEL SOUNDS ARE ACTIVE. SHE HAS SCDS IN PLACE AND IV INTACT AND INFUSION OF 3% NS NOTED. VITALS AT THIS TIME AT 97.6, 65, 18, 142/76, 98% ON ROOM AIR. PATINEMESIO THAS BEEN LOW ON SODIUM AND THE PATINEMESIO TAHS BEEN OTEHERWISE STABLE. RUSTAM TASULMA NEEDED ASSIST TO UP TO THE RESTROOM AND UNDERATED TO CALL FOR ASSIST. PATIENT NOTED LABS ARE THE [facility] AT 248, [facility] AT 8.0, NA AT 120, AND THE [facility] AT 3.71. PATIENT SPEAKS PORTUGESE AND UNDERSTANDS AND SPEAKS IRISH. WILL CONTINUE TO MONITOR INDICATED.
[2019-03-29 08:44] LABS: SODIUM SERUM 120 mmol/L (136-145)
[2019-03-29 09:55] VITALS: BP 126/62
[2019-03-29 09:56] VITALS: BP 168/78
--- NOTE | 2019-03-29 12:38 | NUR ---
PATIENT HAS BEEN ORDERED A SUPPOSITORY BIT REFERS TO WAIT TILL AFTER THE NOON MEAL. PATIENT HAS BEEN UP EIHT PT AND WALKED WITH THEM AND DID WELL.
--- NOTE | 2019-03-29 13:42 | NUR ---
REFUSED THE SUPPOSTORY AT THIS TIME.
--- NOTE | 2019-03-29 17:13 | NUR ---
PATIENT HAS BEEN GIVEN GENTRY SUPPOSITORY AD NO RESULTS AT THIS TME. REPORTED SHE HAD A BM PRIOR TIMES THREE YESTERDAY PER THE COUNSELING AIDE. PATIENT HAS TAKEN HER MEDICATION LASIX AND WILL MONITOR FOR RESULTS.
[2019-03-29 17:32] VITALS: BP 140/61
--- NOTE | 2019-03-29 19:25 | NUR ---
RECIEVED PT RESTING IN BED WITH NO ACUTE DISTRESS NOTED AT THIS TIME, ASSESSMENT PERFORMED, PT IS A/OX4 WITH NO COMPLAINTS OF PICHARDO OR DIZZINESS, SPEAKS CLEARLY, ABLE TO MAKE NEEDS KNOWN, PT DENIES PAIN OR SOB, REPORTS GENERALIZED WEAKNESS AND STATES IS UNSTEADY AMBULATING, SAFETY PRECAUTIONS IN PLACE, ALL NEEDS MET AT THIS TIME, WILL CONTINUE TO MONITOR
[2019-03-29 20:58] VITALS: BP 119/60
--- NOTE | 2019-03-29 22:45 | NUR ---
PT RESTING IN BED AND DENIES PAIN AT THIS TIME, PT IS A/OX4, NO COMPLAINTS OF PICHARDO OR DIZZINESS, PT DENIES SOB, ALL NEEDS ATTENDED TO AT THIS TIME, SAFETY PRECAUTIONS IN PLACE, WILL CONITNUE TO MONITOR
--- NOTE | 2019-03-30 00:35 | NUR ---
PT RESTING IN BED WITH EYES CLOSED, PT EASILY AROUSABLE TO VERBAL STIMULI,PT DENIES PAIN OR SOB AT THIS TIME, ALL NEEDS ATTENDED TO, SAFETY PRECAUTIONS IN PLACE, WILL CONTINUE TO MONITOR
--- NOTE | 2019-03-30 02:55 | NUR ---
PT RESTING IN BED WITH EYES CLOSED, PT EASILY AROUSABLE TO VERBAL STIMULI, RESPIRATIONS EVEN AND UNLABORED, SAFETY PRECAUTIONS IN PLACE, WILL CONITNUE TO MONITOR
--- NOTE | 2019-03-30 04:16 | NUR ---
PT RESTING IN BED WITH NO ACUTE DISTRESS NOTED AT THIS TIME, PT DENIES SOB OR PAIN AT THIS TIME, ALL NEEDS ATTENDED TO WILL CONTINUE TO MONITOR
--- NOTE | 2019-03-30 05:14 | NUR ---
PT RESTED THROUGH THE NIGHT WITH NO ACUTE DISTRESS, PT DENIED PAIN OR SOB THROUGH SHIFT. PT HAD ONE VOID IN BED AND WAS CLEANED, PT STATES SHE CAN FEEL WHEN SHE NEEDS TO PEE SO SHE WAS EDUCATED ON THE IMPORTANCE OF CALLING FOR BEDPAN WHEN SHE NEEDS TO URINATE OF HAVE A BM, PT VERBALIZED UNDERSTANDING, SAFETY PRECAUTIONS WERE MAINTIANED THOUGH THE NIGHT, WILL CONTINUE TO MONITOR AND ENDORSE CARE
[2019-03-30 05:46] VITALS: BP 110/56
[2019-03-30 06:12] LABS: BASOPHIL % 0.8 % (0-2); PLATELET COUNT 344 x10^3mcL (130-400); RED CELL DISTRIBUTION WIDTH 13.6 % (11.5-14.5)
[2019-03-30 06:30] LABS: CALCIUM 8.2 mg/dL (8.5-10.1); CARBON DIOXIDE 26.3 mmol/L (21-32); CHLORIDE SERUM 87 mmol/L (98-107); GLUCOSE SERUM 82 mg/dL (74-106); POTASSIUM SERUM 4.2 mmol/L (3.5-5.1)
--- NOTE | 2019-03-30 08:00 | NUR ---
RECIEVED PATIENT AWAKE AND TALKATIVE. IV INTACT AND PATIENT HAS BEEN HEPLOCKED. STILL INCONTINENT OF URINE OVER NIGHT AND REMIMDED SHE SHOULD BE UP WITH STAFF AND USING THE RESTROOM. AND MOBILITY IS VEYR IMPORTANT FOR HER RECOVERY. SHE HAS BENE UP WITH PT AND HAS USED TE RESTROO. VITALS AT THIS TIME AT 98.6, 61, 18, 110/56, 98%. TRISTON CEBALLOS BEEN ON LAXI PO AND NOW ORDERED IS THE SODIUM PO. PATIENT HAS HISTO RYOF HIGH CHOLESTEROL AND TRIGLYCERIDES AND HAS HAD HX OF UT AND SIADH. PATIENT HAS NO KNOWN ALLERGIES AND BOWEL SOUND ACTIVE. SHE TOLERATE DIET BUT IS A SLOW AND PICKY AT EATTING. SHE HAS A POOR APPETITE.
[2019-03-30 08:03] LABS: SODIUM SERUM 123 mmol/L (136-145)
[2019-03-30 09:00] VITALS: BP 119/53
--- NOTE | 2019-03-30 09:45 | NUR ---
PATIENT SEEN BY THE BANKMAN AND WAS SEEN BY THE MIXING ROLL OPERATOR. PATIENT HAS BEEN ACTING STRANGELY ON AND OFF AND SEEMS SHE HAS INTERMITTANT CONFUSION AND UNDERSTANDING OF [place]. FAMILY OF PATIENT IS COMING IN TODAY AT 1200 AND WILL ASSIST IN SIGNING PAPERWORK. GAVE THE SODIUM ORDERE. CONTINUED LOW SODIUM OF 120.
--- NOTE | 2019-03-30 10:31 | NUR ---
PATIENT ON AND OFF PERIODS OF CONFUSION. SHE WAS GIVEN THE SODIUM ORDERED. VITALS STABLE AND NOTED OCCASIONAL PVCS REPORTED. PATIENT DENIES SYMPTOMS.
[2019-03-30 12:45] VITALS: BP 109/58; BP 138/77
--- NOTE | 2019-03-30 13:04 | NUR ---
PATIENT EATTING LUNCH AT THIS TIME. DOES NOT EXPRESS ANY PAIN OR DISCOMFORT. WILL CONTINUE TO MONITOR.
--- NOTE | 2019-03-30 14:24 | NUR ---
TRISTON TCONTINUED TO REFUSE OOB TO THE RESTROOM AND HAS BEEN URINATING IN BED. PATIENT WAS ABLE TO AMBULATE AND HAS BEEN DETERMINIED TO STAY IN BED WITH MINNIMAL MOBILITY. WHEN ASKED HER SHE STATES SHE NEEDS TO HAVE A STOOL. MIRALAX WAS GIVEN BUT SHE HAS BEEN ADVISED SHE NEED TO BE UP AND WALKING. SHE IS ENCOURAGE TO REQUEST ASSIST BUT NEEDS TO AMBULATE.
[2019-03-30 17:40] VITALS: BP 127/61
--- NOTE | 2019-03-30 19:05 | NUR ---
BROUGHT BEDSIDE COMODE TO PATIENT AND ENCOURAGED USE. PATIENT HAS BEEN NOT GETTING UP EVEN WITH ASSIST AND NEEDS TO AMBULATE. PATIENT HAS BEEN WITH INCONTINENCE AND THEN ASKING TO BE CHANGED. SHE HAS THE EXCUSE OF THE SCDS AND THIS IS ADVISED CAN BE REMOVED FOR HER TO GET UP.
--- NOTE | 2019-03-30 19:40 | NUR ---
RECEIVED REPORT FROM DAY SHIFT RN. PT RESTING IN BED. AA&O X4. NO SOB NOTED ON ROOM AIR. NO C/O PAIN. NO DISTRESS NOTED. IV TO RAC, SALINE LOCKED. SAFETY MEASURES IN PLACE. BED IN LOWEST POSITION. SIDE RAILS UP X2. INSTRUCTED PT TO USE THE CALL LIGHT FOR ASSISTANCE. CALL LIGHT WITHIN REACH.
[2019-03-30 20:52] VITALS: BP 106/59
[2019-03-31 05:00] VITALS: BP 125/67
[2019-03-31 06:45] LABS: BASOPHIL % 0.7 % (0-2); PLATELET COUNT 354 x10^3mcL (130-400); RED CELL DISTRIBUTION WIDTH 13.9 % (11.5-14.5)
--- NOTE | 2019-03-31 06:45 | NUR ---
PT RESTED IN INTERVALS THROUGHOUT SHIFT. NO SOB NOTED. NO C/O PAIN. NO DISTRESS NOTED. USED THE BEDSIDE COMMODE WITH ASSIST. SAFETY MEASURES MAINTAINED. ALL NEEDS ATTENDED TO. CALL LIGHT WITHIN REACH. WILL ENDORSE CONTINUITY OF CARE TO ONCOMING RN.
--- NOTE | 2019-03-31 07:12 | NUR ---
RECEIVED PATIENT AWAKE/ALERT IN BED NO C/O PAIN. TELE #19 SB W/ HR 59. IV TO RAC INTACT AND SL NOTED. INSTRUCT PATIENT TO USES CALL LIGHT FOR DRAFTER ASSISTANT.
[2019-03-31 07:21] LABS: CALCIUM 8.2 mg/dL (8.5-10.1); CARBON DIOXIDE 26.8 mmol/L (21-32); CHLORIDE SERUM 88 mmol/L (98-107); GLUCOSE SERUM 81 mg/dL (74-106); POTASSIUM SERUM 4.2 mmol/L (3.5-5.1)
[2019-03-31 07:30] LABS: SODIUM SERUM 124 mmol/L (136-145)
--- NOTE | 2019-03-31 07:39 | NUR ---
PHYSICAL THERAPY DAILY NOTES CO-SIGN All documentation done by the Environmental Restoration Planner for 03/30/19 has been reviewed. I agree with the documentation. Reviewed/Co-Signed by: Kay Sykes PT Documentation Done by:LISA KOVACS PTA
--- NOTE | 2019-03-31 09:29 | NUR ---
PATIENT REMAIN SITTING UP IN BED AWAKE/ALERT, NO C/O PAIN. ALL DUE MEDS ADMINISTERED W/O PROBLEM. NEEDS MET. CALL LIGHT WITHIN REACH.
[2019-03-31 09:34] VITALS: BP 110/71
[2019-03-31] MEDS ORDERED: LASIX40 MG PO (10:56)
[2019-03-31 11:05] VITALS: BP 116/60
--- NOTE | 2019-03-31 11:52 | NUR ---
Follow-up Nutrition Assessment: 218T/B MARYJANELONNYIRA FU LR Dx: Severe hyponatremia, generalized weakness PMHx: High cholesterol, UTI Labs: (03/31): NA 124L, BUN 25H, HGB 11.6L Meds: Colace, Lasix, milk of magnesia, miralax, zofran Diet: Regular, FR 1500 ml/day PO Intake: (03/31) breakfast 90%, (03/30) breakfast 100%, lunch 40%, dinner 50% Weights: (03/24) 54 kg, (03/31) 57 kg Skin: intact Jose G: 18 I/Os: (03/31) 1800/ output not documented (1800) Edema: none GI: Last BM: 03/30 RDN Visit (03/31): Patient was alert and oriented but appeared weak. Patient said that she does not have any N/V/D/C at this time and she is consuming ONS Ensure. Per progress note (03/31) pt. has been diagnosed with Hyponatremia 2/2 SIADH, awaiting for pharmacy to supply samsca. Estimated Nutritional Needs Based on actual body weight 59 kg Energy: 9811-1002 kcal/d (30-35 kcal/kg) Protein: 59-71 g/d (1.0-1.2 g/kg) - geriatric maintenance Fluid: 9683-3663 ml/d (1 ml/kcal) or per doctor Nutrition Diagnosis 1. Increased nutrient needs related to geriatric age as evidenced by estimated calorie and protein needs. (ongoing) Intervention 1. Recommend continuing regular diet w/ Ensure Enlive BID. 2. Discussed recommendations with CONSULTING PROPERTY MANAGER Nisha. Monitor/Evaluate Goal: Have pt meet at least 75% of estimated needs Monitor: PO intake, Labs, GI function F/U in 7 days as low risk 04/07
--- NOTE | 2019-03-31 11:52 | NUR ---
1. Recommend continuing regular diet w/ Ensure Enlive BID. 2. Discussed recommendations with PASQUALE Cameron.
[2019-03-31 12:34] VITALS: BP 116/60
--- NOTE | 2019-03-31 12:38 | NUR ---
PASQUALE SMITH INFORM PATIENT'S GRAND-DTR ANGELA THAT PATIENT IS DISCHARGE TO [facility] AT 3PM.
[2019-03-31 13:16] VITALS: BP 116/60
--- NOTE | 2019-03-31 14:25 | NUR ---
PHYSICAL THERAPY DAILY NOTES CO-SIGN All documentation done by the Distribution Sales Manager for 03/31/19 has been reviewed. I agree with the documentation. Reviewed/Co-Signed by: Kay Sykes PT Documentation Done by: LISA KOVACS PTA
--- NOTE | 2019-03-31 14:29 | NUR ---
CALL BRUNILDA LAYTON AT [phone] GAVE REPORT TO MARCO ASTORGA. 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
--- NOTE | 2019-03-31 14:38 | NUR ---
PATIENT RESTING IN BED DIRECTOR OF SECURITIES AND REAL ESTATE ASSISTING PATIENT CHANGING NEW GOWN, DISCHARGE INSTRUCTION GIVEN TO PATIENT, PATIENT VERBALIZE UNDERSTANDING, INFORM PATIENT PICK AT AT 3PM.
--- NOTE | 2019-03-31 15:38 | NUR ---
[facility] HERE FOR PATIENT, REPORT GIVEN TO EMT. IV TO RAC REMOVED WITH CATHETER INTACT, GAUZES APPLIED TO SITE, TELE #19 REMOVED AND RETURN TO [facility]. PATIENT TRANSFER WITH ALL BELONGINGS.
== END 2019-03-31 15:51 | DRG 643 ==
LOC: ED 10:02 → DU 11:49 → MU 03-26 09:37 → DU 03-30 05:18
PROVIDERS: General Practice; Specialist; ADMIT Internal Medicine
DX: E22.2 Syndrome of inappropriate secretion of antidiuretic hormone (principal); G93.41 Metabolic encephalopathy; E83.51 Hypocalcemia; E78.5 Hyperlipidemia, unspecified; D53.9 Nutritional anemia, unspecified; Z68.27 Body mass index [BMI] 27.0-27.9, adult
CPT/HCPCS: 36600; 84439; 97110-GP; 97116-GP; 97530-GP; G0378; J0696; J2405; J3475; J7030; Q0092